=== PATIENT | female | born 1995 | race Caucasian/White ===

== ENCOUNTER 2019-03-18 21:52 | Emergency (ER) | payer OTHER ==
[~2019-03-18] VITALS: Ht 154.9 cm; Wt 68.0 kg
[2019-03-18] MEDS ORDERED: VENL-48 (22:10)
[2019-03-18] MEDS ORDERED: NORG1TAB14 (22:10)
[2019-03-18] MEDS ORDERED: BUSP5TAB59 (22:10)
[2019-03-18 22:53] LABS: BASOPHILS % (AUTO) 0 % (0-10); EOSINOPHILS # (AUTO) 0.1 10^3/uL (0.0-0.3); EOSINOPHILS % (AUTO) 1 % (0-10); HEMATOCRIT 32 % (35-52); HEMOGLOBIN 9.8 G/DL (11.5-16.0); LYMPHOCYTES # (AUTO) 2.8 X 10^3 (1.0-4.0); LYMPHOCYTES % (AUTO) 51 % (12-44); MEAN CORPUSCULAR HEMOGLOBIN 20 PG (25-34); MEAN CORPUSCULAR HGB CONC 31 G/DL (32-36); MEAN CORPUSCULAR VOLUME 63 FL (80-99); MEAN PLATELET VOLUME 9.8 FL (7.4-10.4); MONOCYTES # (AUTO) 0.5 X 10^3 (0.0-1.0); MONOCYTES % (AUTO) 9 % (0-12); NEUTROPHILS # (AUTO) 2.1 X 10^3 (1.8-7.8); NEUTROPHILS % (AUTO) 39 % (42-75); PLATELET COUNT 240 10^3/uL (130-400); RED CELL DISTRIBUTION WIDTH 15.2 % (10.0-14.5); WHITE BLOOD COUNT 5.4 10^3/uL (4.3-11.0)
[2019-03-18 22:55] LABS: BILIRUBIN,URINE NEGATIVE (NEGATIVE); CLARITY,URINE SLIGHTLY CLOUDY; COLOR,URINE YELLOW; GLUCOSE, URINE (UA) NEGATIVE (NEGATIVE); KETONES,URINE NEGATIVE (NEGATIVE); LEUKOCYTE ESTERASE ,URINE 1+ (NEGATIVE); NITRITE,URINE POSITIVE (NEGATIVE); PH,URINE 6 (5-9); PROTEIN,URINE NEGATIVE (NEGATIVE); UROBILINOGEN,URINE NORMAL (NORMAL)
[2019-03-18 23:02] LABS: BACTERIA,URINE LARGE /HPF
[2019-03-18 23:19] LABS: ALANINE AMINOTRANSFERASE 9 U/L (0-55); ALBUMIN 3.9 GM/DL (3.2-4.5); ALKALINE PHOSPHATASE 37 U/L (40-136); AMYLASE 23 U/L (25-125); BILIRUBIN,TOTAL 0.1 MG/DL (0.1-1.0); BUN/CREATININE RATIO 10; CALCIUM 9.4 MG/DL (8.5-10.1); CARBON DIOXIDE 24 MMOL/L (21-32); CHLORIDE 105 MMOL/L (98-107); GFR ESTIMATED > 60; GLUCOSE 102 MG/DL (70-105); LIPASE 36 U/L (8-78); POTASSIUM 4.3 MMOL/L (3.6-5.0); SODIUM 138 MMOL/L (135-145); TOTAL PROTEIN 7.7 GM/DL (6.4-8.2)
[2019-03-18] MEDS ORDERED: cefTRIAXone FOR IV USE 1,000 MG in WATER (STERILE) FOR INJECTION 10 ML IV ONE (23:30)
[2019-03-19] MEDS ORDERED: NS 100 ML (IVPB) BAG IV ONE
[2019-03-19] MEDS ORDERED: IOHEXOL 350 MG/ML 100 ML (OMNIPAQUE 350) VIAL IV ONE
[2019-03-19] MEDS ORDERED: HOLD METFORMIN - RECEIVED CONTRAST 20 ML VIAL IV SCH
[2019-03-19] MEDS ORDERED: NITR-65 PO (00:31)
[2019-03-19] MEDS ORDERED: HYOS0.1283 SL (00:31)
--- NOTE | 2019-03-19 00:31 | ED Abdominal Pain ---
General Chief Complaint: Abdominal/GI Problems Stated Complaint: ABD PAIN Nursing Triage Note: intermittant lower abdominal pain x1 week. hx constipation. Sepsis Screen: No Definite Risk Source of Information: Patient, Other (MALE S.O. TRIES TO DO ALL TALKING FOR PT) History of Present Illness Date Seen by Provider: Mar 18, 2019 Time Seen by Provider: 22:15 Initial Comments PT ARRIVES VIA POV FROM HOME C/O LOWER ABDOMINAL PAIN FIRST STATES IT BEGAN ON THE WAY HERE, AND RESOLVED PRIOR TO ARRIVAL THEN BOYFRIEND TELLS HER THAT IS STARTED A COUPLE OF DAYS AGO, AND HAS BEEN GOING ON ALL DAY TODAY AND GOT WORSE TONIGHT PT STATES PAIN COMES AND GOES NOTHING WORSENS OR IMPROVES PAIN HAS NOT TAKEN ANYTHING FOR PAIN NO FEVER NO URINARY SYMPTOMS NO NAUSEA/VOMITING/DIARRHEA. LAST BM WAS ON Friday03/15/19--BM'S VERY "IRREGULAR" AND "SOMETIMES ONLY GOES ONCE A MONTH" CONTINUES TO EAT AND DRINK USUAL LMP END OF JANUARY TO MARCH 5 OR 6. NORMAL. ON OCP'S PT HAS NOT BEEN TAKING HER PSYCH MEDICATIONS FOR A COUPLE OF MONTHS,--NO REASON, JUST QUIT TAKING THEM. PCP: NONE PSYCH: HAYLEE YI Allergies and Home Medications Allergies Coded Allergies: latex (Verified Allergy, Unknown, 03/18/19) Home Medications Hyoscyamine Sulfate 0.125 Mg Tab.subl, 1-2 TAB SL Q4H Prescribed by: ANA ALEMAN on 03/19/1930 Nitrofurantoin Monohyd/M-Cryst 100 Mg Capsule, 100 MG PO BID Prescribed by: ANA ALEMAN on 03/19/1930 Patient Home Medication List Home Medication List Reviewed: Yes Review of Systems Review of Systems Constitutional: no symptoms reported Respiratory: No Symptoms Reported Cardiovascular: No Symptoms Reported Gastrointestinal: See HPI, Abdominal Pain, Constipated; Denies Diarrhea, Denies Nausea, Denies Poor Appetite, Denies Poor Fluid Intake, Denies Vomiting Genitourinary: No Symptoms Reported Musculoskeletal: no symptoms reported Skin: no symptoms reported Psychiatric/Neurological: No Symptoms Reported Endocrine: No Symptoms Reported Hematologic/Lymphatic: No Symptoms Reported Past Eeshmnd-Fwrmwm-Gawcte Hx Patient Social History Alcohol Use: Occasionally Uses Recreational Drug Use: No Smoking Status: Never a Smoker 2nd Hand Smoke Exposure: No Recent Foreign Travel: No Contact w/Someone Who Travel: No Recent Infectious Disease Expo: No Recent Hopitalizations: No Physical Abuse: No Sexual Abuse: No Mistreated: No Fear: No Immunizations Up To Date Tetanus Booster (TDap): Unknown Seasonal Allergies Seasonal Allergies: No Past Medical History Surgeries: Yes ( X 2) Section Respiratory: No Cardiac: No Neurological: No : No Last Menstrual Period: Feb 28, 2019 Reproductive Disorders: No Genitourinary: No Gastrointestinal: Yes Chronic Constipation Musculoskeletal: No Endocrine: No HEENT: No Cancer: No Psychosocial: Yes ("MOOD DISORDER" ) Anxiety, Depression Integumentary: No Blood Disorders: No Physical Exam Vital Signs Vital Signs - First Documented 03/18/19 22:03 Temp 97.1 Pulse 87 Resp 16 B/P (MAP) 125/84 (98) Pulse Ox 100 O2 Delivery Room Air Capillary Refill : Less Than 3 Seconds Height/Weight/BMI Height: 5'1.00" Weight: 150lbs. oz. 68.564229pt; BMI Method:Stated General Appearance: WD/WN, no apparent distress, other (WALKS UPRIGHT AND MOVES WITHOUT DIFFICULTY, DOES NOT APPEAR TO BE IN ANY DISCOMFORT OR DISTRESS. 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, no motor/sensory deficits, alert, normal mood/affect, oriented x 3 Skin: normal color, warm/dry Progress/Results/Core Measures Results/Orders Lab Results Laboratory Tests Test 03/18/19 22:10 03/18/19 22:45 Range/Units Urine Color YELLOW Urine Clarity SLIGHTLY CLOUDY Urine pH 6 5-9 Urine Specific [place] 1.015 L 1.016-1.022 Urine Protein NEGATIVE NEGATIVE Urine Glucose (UA) NEGATIVE NEGATIVE Urine Ketones NEGATIVE NEGATIVE Urine Nitrite POSITIVE H NEGATIVE Urine Bilirubin NEGATIVE NEGATIVE Urine Urobilinogen NORMAL NORMAL MG/DL Urine Leukocyte Esterase 1+ H NEGATIVE Urine RBC (Auto) NEGATIVE NEGATIVE Urine RBC NONE /HPF Urine WBC 10-25 H /HPF Urine Squamous Epithelial Cells 5-10 /HPF Urine Crystals NONE /LPF Urine Bacteria LARGE H /HPF Urine Casts NONE /LPF Urine Mucus MODERATE H /LPF Urine Culture Indicated YES White Blood Count 5.4 4.3-11.0 10^3/uL Red Blood Count 5.02 4.35-5.85 10^6/uL Hemoglobin 9.8 L 11.5-16.0 G/DL Hematocrit 32 L 35-52 % Mean Corpuscular Volume 63 L 80-99 FL Mean Corpuscular Hemoglobin 20 L 25-34 PG Mean Corpuscular Hemoglobin Concent 31 L 32-36 G/DL Red Cell Distribution Width 15.2 H 10.0-14.5 % Platelet Count 240 130-400 10^3/uL Mean Platelet Volume 9.8 7.4-10.4 FL Neutrophils (%) (Auto) 39 L 42-75 % Lymphocytes (%) (Auto) 51 H 12-44 % Monocytes (%) (Auto) 9 0-12 % Eosinophils (%) (Auto) 1 0-10 % Basophils (%) (Auto) 0 0-10 % Neutrophils # (Auto) 2.1 1.8-7.8 X 10^3 Lymphocytes # (Auto) 2.8 1.0-4.0 X 10^3 Monocytes # (Auto) 0.5 0.0-1.0 X 10^3 Eosinophils # (Auto) 0.1 0.0-0.3 10^3/uL Basophils # (Auto) 0.0 0.0-0.1 10^3/uL Sodium Level 138 135-145 MMOL/L Potassium Level 4.3 3.6-5.0 MMOL/L Chloride Level 105 98-107 MMOL/L Carbon Dioxide Level 24 21-32 MMOL/L Anion Gap 9 5-14 MMOL/L Blood Urea Nitrogen 8 7-18 MG/DL Creatinine 0.80 0.60-1.30 MG/DL Estimat Glomerular Filtration Rate > 60 BUN/Creatinine Ratio 10 Glucose Level 102 70-105 MG/DL Calcium Level 9.4 8.5-10.1 MG/DL Corrected Calcium 9.5 8.5-10.1 MG/DL Total Bilirubin 0.1 0.1-1.0 MG/DL Aspartate Amino Transf (AST/SGOT) 11 5-34 U/L Alanine Aminotransferase (ALT/SGPT) 9 0-55 U/L Alkaline Phosphatase 37 L 40-136 U/L Total Protein 7.7 6.4-8.2 GM/DL Albumin 3.9 3.2-4.5 GM/DL Amylase Level 23 L 25-125 U/L Lipase 36 8-78 U/L My Orders Orders - ANA ALEMAN DO Ed Iv/Invasive Line Start (03/18/19 22:18) Urine Bedside (03/18/19 22:18) Amylase (03/18/19 22:18) Cbc With Automated Diff (03/18/19 22:18) Comprehensive Metabolic Panel (03/18/19 22:18) Lipase (03/18/19 22:18) Ua Culture If Indicated (03/18/19 22:18) Urine Culture (03/18/19 22:10) Ct Abd/Pelv W (Appendicitis) (03/18/19 23:16) Acute Abd Series (03/18/19 23:16) Ceftriaxone For Iv Use (Rocephin For I (03/18/19 23:30) Iohexol Injection (Omnipaque 350 Mg/Ml 1 (03/19/19 00:00) Received Contrast (Hold Metformin- Contr (03/19/19 00:00) Ns (Ivpb) (Sodium Chloride 0.9% Ivpb Bag (03/19/19 00:00) Medications Given in ED Current Medications Medications Dose Ordered Sig/Juan Route Start Time Stop Time Status Last Admin Dose Admin Ceftriaxone Sodium 1000 mg/ Sterile Water 10 ml @ 200 mls/hr ONCE ONCE IV 03/18/19 23:30 03/18/19 23:32 DC 03/18/19 23:37 200 MLS/HR Iohexol 100 ml ONCE ONCE IV 03/19/19 00:00 03/19/19 00:01 DC 03/18/19 23:54 100 ML Sodium Chloride 100 ml ONCE ONCE IV 03/19/19 00:00 03/19/19 00:01 DC 03/18/19 23:54 80 ML Vital Signs/I&O 03/18/19 22:03 Temp 97.1 Pulse 87 Resp 16 B/P (MAP) 125/84 (98) Pulse Ox 100 O2 Delivery Room Air Blood Pressure Mean: 98 Progress Progress Note : Progress Note NO PAIN OR ANY OTHER COMPLAINTS DURING ENTIRE ER STAY Diagnostic Imaging Comments ABDOMEN XRAYS--CONSTIPATION, NO ACUTE PROCESS, PENDING RADIOLOGIST REVIEW CT ABDOMEN / PELVIS--MODERATE CONSTIPATION, MILD BLADDER WALL THICKENING, PUNCTATE GALLSTONE, NO ACUTE PROCESS--PER [facility] VIA FAX AT 0020 Reviewed: Reviewed by Me Departure Impression Primary Impression: Urinary tract infection Additional Impression: Constipation Disposition: 01 HOME, SELF-CARE Condition: Improved Departure-Patient Inst. Referrals: NO,LOCAL PHYSICIAN (PCP/Family) Primary Care Physician Patient Instructions: Urinary Tract Infection, Adult (DC), Constipation, Adult (DC) Add. Discharge Instructions: INCREASE YOUR CLEAR LIQUIDS--DRINK ENOUGH SO YOU ARE URINATING EVERY 2-3 HOURS WHILE AWAKE TYLENOL AND MOTRIN NEEDED FOR PAIN TAKE MIRALAX EVERY 2 HOURS UNTIL YOUR STOOLS ARE CLEAR, THEN TAKE ONCE A DAY FOLLOW UP WITH YOUR DR IN 2-3 DAYS IF NO BETTER All discharge instructions reviewed with patient and/or family. Voiced understanding. Scripts Hyoscyamine Sulfate (Levsin-Sl) 0.125 Mg Tab.subl 1-2 TAB SL Q4H for Abdominal Pain, #10 TAB Prov: ANA ALEMAN DO 03/19/19 Nitrofurantoin Monohyd/M-Cryst (Macrobid 100 mg Capsule) 100 Mg Capsule 100 MG PO BID, #20 CAP Prov: ANA ALEMAN DO 03/19/19 ANA ALEMAN DO Mar 19, 2019 00:31
[2019-03-19 00:52] VITALS: BP 118/51
--- NOTE | 2019-03-19 05:38 | Diagnostic Imaging Report ---
INDICATION: Lower abdominal pain. Constipation. COMPARISON: None FINDINGS: Supine and upright views of the abdomen show a nondistended bowel gas pattern. No abnormal air fluid levels or free intraperitoneal air is seen. Metallic appearing density projects over the left upper abdominal quadrant and may represent debris contained within the gastrointestinal tract. No abnormal extraosseous calcifications are seen. Bony and soft tissue structures are within normal limits. No organomegaly is identified. Accompanying upright chest shows normal heart size and pulmonary vascularity. The lungs are well aerated and clear. The mediastinum is normal in appearance. IMPRESSION: 1. No bowel obstruction or free air. 2. Normal chest. No pneumonia or pulmonary edema. Dictated by: Dictated on workstation # [id number]
--- NOTE | 2019-03-19 07:11 | Diagnostic Imaging Report ---
PROCEDURE: CT abdomen and pelvis with contrast, rule out appendicitis. TECHNIQUE: Multiple contiguous axial images were obtained through the abdomen and pelvis after the administration of intravenous contrast. INDICATION: Lower abdominal pain and constipation. No prior examination available for comparison. FINDINGS: The heart size is normal. The lung bases are clear. The liver is normal in size without focal lesions. Gallbladder is contracted. There appears to be cholelithiasis. There is no biliary ductal dilatation. Spleen is normal. Pancreas and adrenal glands are unremarkable. Kidneys normal in appearance. The aorta is nonaneurysmal. Bowel gas pattern is nonspecific. No free air. No ascites. No focal inflammatory change. Bladder is normal. There is no pelvic mass or adenopathy. The osseous structures are unremarkable. IMPRESSION: Cholelithiasis within an otherwise contracted gallbladder. No other acute abnormality in the abdomen or pelvis. Dictated by: Dictated on workstation # [id number]
== END 2019-03-19 00:53 | disposition home or self-care (01) ==
LOC: ER 21:54
DX: N39.0 Urinary tract infection, site not specified (principal); K59.00 Constipation, unspecified; F41.9 Anxiety disorder, unspecified; F32.9 Major depressive disorder, single episode, unspecified; Z87.19 Personal history of other diseases of the digestive system; Z91.040 Latex allergy status; Z91.14 Patient's other noncompliance with medication regimen
CPT/HCPCS: 36415; 74022; 74177; 80053; 81000; 82150; 83690; 84703; 85025; 87077; 87088; 87186; 96374